=== PATIENT | male | born 2000 | race Caucasian/White ===

== ENCOUNTER 2023-05-15 16:31 | Emergency (ER) | payer OTHER, SELFPAY ==
[2023-05-15 16:32] VITALS: BP 131/86; PULSE 78; RESP 18; TEMP 36.5; O2SAT 99; BMI 21.4
--- NOTE | 2023-05-15 16:39 | PC.NURSE ---
Dr. Grier at [facility]
--- NOTE | 2023-05-15 16:48 | ED_ITS ---
Discharge Plan Disposition Patient Disposition: Home, Self-Care Prescriptions Prescriptions: No Action azithromycin 250 MG tablet 250 mg PO UD DOSE PK Qty: 6 0RF Rx Instructions: Take two (2) tablets today, then one (1) tablet days #2 thru #5 prednisone 5 MG tablets,dose pack 5 mg PO UD DOSE PK Qty: 21 0RF [id number]-yalsrzflt-[id number] 118 ML syrup 10 ml PO Q6HP PRN (Reason: Cough) Qty: 300 0RF fluticasone propionate 120 SPR/BOT bottle 2 spr NS DAILY Qty: 1 0RF Rx Instructions: each nostril Referrals Follow up/Referrals: Stas Morillo [Primary Care Provider] - See instructions Lucian Last MD [Staff Physician] - See instructions Activity Restrictions/Add. Instructions Additional Instructions/Restrictions: No physical exam evidence of an indirect or direct inguinal hernia. Certainly no evidence of a incarcerated or strangulated hernia. Please follow-up with our general surgeon if you continue to have any discomfort or concerns or any evidence of a mass or bulge that you feel. Return to the emergency department if you feel a bulge that is not able to be reduced as discussed. Otherwise you may return to work when your symptoms have resolved. You may take Tylenol and ibuprofen as needed for the pain that you are feeling. Clinical Impressions Clinical Impression: Groin strain Stand Alone Forms Stand Alone Forms: Work/School Release Discharge ED Provider: Cuca Grier General Adult HPI General Stated complaint: [id number] left groin area Time Seen by Provider: 05/15/23 16:35 History of Present Illness HPI narrative: Patient is a 22-year-old male presenting today with left groin pain after moving a patient. 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 He has a history of an inguinal hernia repair on the right side several years ago and states that he felt some discomfort in the left groin. Denies any specific mass or bulge that he feels but did feel little bit of swelling on the superior lateral aspect of his perineal region Related Data Previous Rx's Medication Instructions Recorded azithromycin 250 mg tablet 250 mg PO UD DOSE PK #6 tabs 02/05/18 kqdknhlwutnbfhu-ornyjdplszezhcq-ON 10 ml PO Q6HP PRN Cough ##300 02/05/18 2 mg-30 mg-10 mg/5 mL oral syrup fluticasone propionate 50 2 spr NS DAILY ##1 02/05/18 mcg/actuation nasal spray,suspension prednisone 5 mg tablets in a dose 5 mg PO UD DOSE PK ##21 02/05/18 pack Allergies Allergy/AdvReac Type Severity Reaction Status Date / Time HYDROCODONE Allergy Severe TURNS Uncoded 05/04/17 15:11 GREEN From AUGMENTIN Allergy Mild MOM STATES Uncoded 05/04/17 15:11 HE CAN'T TAKE AUGMENTIN LIQUID B/C IS CAUSES N/V PFSH [facility] Disclaimer: The information contained in this section may have been updated after the patient was seen, as this information can be updated by other users. Social History Smoking Status: Unknown if ever smoked alcohol intake: never current occupational status: other Travel in the last 8 weeks: None ROS Obtained: Yes All systems reviewed & no additional complaints except as documented Physical Exam General General appearance: alert Respiratory Respiratory exam: Present normal lung sounds bilaterally; Absent respiratory distress Cardiovascular Cardiovascular exam: Present regular rate; Absent tachycardia exam: Present other (There is no evidence of any abnormal mass no obvious inguinal hernia, direct or indirect patient has some subjective swelling on the superior lateral aspect just proximal to the base of his penis but this appears to be symmetric nothing obvious on my exam) Neurological Exam Neurological exam: Present alert and oriented X3 Medical Decision Making Miky Inquiry Pt receiving controlled substance: No Medical Decision Narrative: Patient is a 22-year-old male who complains of pain and some subjective swelling just proximal to the base of his penis on the lower aspect of his abdomen there is no evidence of inguinal hernia on my physical exam with Valsalva in the inguinal ring or anywhere in the abdominal wall itself. The swelling that he is feeling does not appear to be abnormal or asymmetric to me. It is possible that he has muscular insertion tear in the location where he is having pain and discomfort. He has been advised to follow-up with our general surgeon and a referral has been made if he does not fact feel a bulge or if he has an irreducible hernia to return to the emergency department no evidence of that at the moment. Has been advised to return to work as symptoms tolerate. No further emergent medical tests or treatment needed at the moment. Critical Care Critical Care Time Critical Care Time: No
[2023-05-15 16:58] VITALS: BP 131/82; PULSE 72; RESP 20; TEMP 36.5; O2SAT 99
== END 2023-05-15 17:00 | disposition home or self-care (01) ==
PROVIDERS: Emergency Provider Student in an Organized Health Care Education/Training Program; PCP Family Medicine
DX: S76.812A Strain of other specified muscles, fascia and tendons at thigh level, left thigh, initial encounter (principal); X50.0XXA Overexertion from strenuous movement or load, initial encounter; Y99.0 Civilian activity done for income or pay
CPT/HCPCS: 99282